=== PATIENT | female | born 1990 | race Caucasian/White ===

== ENCOUNTER 2020-12-03 07:20 | Outpatient (CLI) | payer OTHER, SELFPAY ==
[2020-12-03 07:53] LABS: Basophils Absolute Auto 0.1 K/mm3 (0.0-0.1); Basophils Percent Auto 0.7 % (0.2-1.2); Eosinophils Absolute Auto 0.2 K/mm3 (0-0.3); Eosinophils Percent Auto 1.7 % (0-4.4); Hematocrit 40.1 % (37.0-47.0); Hemoglobin 13.2 g/dL (12.0-15.0); Immature Granulocyte Absolute 0.02 K/mm3 (0.00-0.031); Immature Granulocyte Percent A 0.2 % (0-0.5); Lymphocytes Absolute Auto 4.18 K/mm3 (0.9-3.2); Lymphocytes Percent Auto 45.7 % (18.3-44.2); Mean Corpuscular HGB Conc 32.9 g/dl (32-36); Mean Corpuscular Hemoglobin 29.2 pg (26-34); Mean Corpuscular Volume 88.7 fl (80-100); Mean Platelet Volume 8.9 fl (7.4-10.4); Monocytes Absolute Auto 0.5 K/mm3 (0.1-0.6); Monocytes Percent Auto 5.8 % (2.6-8.5); Neutrophils Absolute Auto 4.2 K/mm3 (1.3-6.7); Neutrophils Percent Auto 45.9 % (45.5-73.1); Platelet Count Result 338 k/mm3 (150-375); Red Blood Count 4.52 M/mm3 (4.2-5.4); White Blood Count 9.2 K/mm3 (4.5-10.0)
[2020-12-03 08:40] LABS: Alanine Aminotransferase 16 U/L (4-35); Albumin Level 4.1 g/dL (3.5-5.1); Alkaline Phosphatase 81 U/L (38-126); Anion Gap 8 mmol/L (8-16); Aspartate Amino Transferase 26 U/L (14-36); Bilirubin,Total 0.4 mg/dL (0.2-1.3); Blood Urea Nitrogen 16 mg/dL (7-17); Calcium 9.4 mg/dL (8.4-10.2); Carbon Dioxide 26 mmol/L (22-30); Chloride 103 mmol/L (98-107); Estimated Glomerular Filt Rate > 60; Glucose 90 mg/dL (65-110); Potassium 3.9 mmol/L (3.4-5.0); Sodium 137 mmol/L (137-145)
[2020-12-03 09:03] LABS: HIV 1/2 Ab P24 Ag Result Negative (Negative)
[2020-12-03 12:50] LABS: Free T4 Free Thyroxine 1.22 ng/mL (0.78-2.19); Vitamin D 25 Hydroxy 21.5 ng/mL
[2020-12-05 13:16] LABS: DHEA-Sulfate 93 mcg/dL (23-266)
[2020-12-06 06:54] LABS: FSH 3.4 mIU/mL (***); Progesterone 6.2 ng/mL (***); Prolactin 16.6 ng/mL (***)
[2020-12-07 05:29] LABS: Insulin Level Total 34.5 uIU/mL (<=19.6); Thyroid Peroxidase Antibodies 36 IU/mL (<9)
[2020-12-07 15:52] LABS: Testosterone Free 5.8 pg/mL (0.1-6.4); Testosterone Total 30 ng/dL (2-45)
[2020-12-07 18:12] LABS: Estradiol, Ultrasensitive 105 pg/mL
== END 2020-12-03 07:21 | disposition home or self-care (01) ==
PROVIDERS: Visit Provider Internal Medicine Endocrinology, Diabetes & Metabolism
DX: N92.6 Irregular menstruation, unspecified (principal); Z11.3 Encounter for screening for infections with a predominantly sexual mode of transmission; R53.83 Other fatigue
CPT/HCPCS: 36415; 80053; 82306; 82607; 82627; 82670; 82746; 83001; 83002; 83525; 84144; 84146; 84402; 84403; 84439; 84443; 85025; 86376; 86703; G0432

== ENCOUNTER 2020-12-06 08:32 | Outpatient (CLI) | payer OTHER, SELFPAY ==
[2020-12-06 09:51] LABS: Cortisol Random 0.83 ug/dL
== END 2020-12-06 08:33 | disposition home or self-care (01) ==
PROVIDERS: Visit Provider Internal Medicine Endocrinology, Diabetes & Metabolism
DX: R63.5 Abnormal weight gain (principal)
CPT/HCPCS: 36415; 82533

== ENCOUNTER 2021-09-30 15:43 | Outpatient (CLI) | payer OTHER, SELFPAY ==
--- NOTE | ~2021-09-30 | XR_ITS ---
XR ankle RT 2V DATE: 09/30/2021 16:04 INDICATION: Injury, pain TECHNIQUE: AP and lateral views COMPARISON: None FINDINGS: Mild plantar calcaneal. No fracture or dislocation of the ankle or disruption of the ankle mortise. No reaction or bone destr uction IMPRESSION: Mild plantar calcaneal enthesopathy Reviewed, dictated and finalized at location A.
== END 2021-09-30 15:44 | disposition home or self-care (01) ==
PROVIDERS: PCP Family Medicine; Visit Provider Nurse Practitioner Family
DX: M25.571 Pain in right ankle and joints of right foot (principal); S99.919A Unspecified injury of unspecified ankle, initial encounter; M77.31 Calcaneal spur, right foot
CPT/HCPCS: 73600

== ENCOUNTER 2022-09-29 11:00 | Emergency (ER) | payer BC, SELFPAY ==
--- NOTE | ~2022-09-29 | XR_ITS ---
EXAMINATION: XR foot RT min 3V DATE: 09/29/2022 11:43 INDICATION: Right foot pain TECHNIQUE: Dorsoplantar, lateral, and 2 oblique views of the right foot were obtained. COMPARISON: None. FINDINGS: Subtle heterotopic ossification is seen lateral to the cuboid. There is mild soft tissue sw elling of the midfoot. The joint spaces are normal. IMPRESSION: 1. Subtle heterotopic ossification lateral to the cuboid which could reflect avulsion injury. Reviewed, dictated and finalized at location A. IMPRESSION: 1. Subtle heterotopic ossification lateral to the cuboid which could reflect av ulsion injury.
[2022-09-29 11:20] VITALS: BP 121/86; PULSE 68; RESP 18; TEMP 36.8; O2SAT 99
--- NOTE | 2022-09-29 12:06 | ED.LOWEXIN ---
HPI - Extremity Injury (Lower) General Chief Complaint: Extremity Injury, Lower Stated Complaint: Rt Ankle and Foot Pain Time Seen by Provider: 09/29/22 11:25 Source: patient Mode of arrival: ambulatory Limitations: no limitations History of Present Illness HPI Narrative: Sandrine is a 31-year-old female patient presenting to clinic today with complaints of right-sided foot pain. She reports that she was skipping approximately 1.5 weeks ago and injured her right foot. She reports that the pain is getting worse that she is walking over the last week. Pain is worse to the dorsal proximal foot and to the lateral foot Related Data Home Medications Medication Instructions Recorded Confirmed buprenorphine 8 mg-naloxone 2 mg 1 film sublingual TID 09/29/22 09/29/22 sublingual film Allergies Allergy/AdvReac Type Severity Reaction Status Date / Time amoxicillin Allergy Mild rash Verified 09/29/22 11:17 ketorolac [From Toradol] Allergy Mild Rash Verified 09/29/22 11:17 tramadol Allergy Mild rash Verified 09/29/22 11:17 codeine Allergy Unknown Confusion Verified 09/29/22 11:17 Review of Systems Review of Systems: Pertinent positives per HPI. Patient denies any fever, chills, rash, headache, visual changes, dizziness, cough, runny nose, sore throat, shortness of breath, chest pain, palpitations, nausea, vomiting, diarrhea, constipation, abdominal pain, or any urinary issues. [facility] Past Medical History Medical History Body mass index (BMI) of 40.1 to 44.9 in adult Depression Surgical History Surgical History History of salpingo-oophorectomy History of tonsillectomy Hx laparoscopic cholecystectomy Family History Family History Father Hypertension Hidradenitis suppurativa Grandparent Diabetes mellitus Hypertension Lung cancer Emphysema lung Alzheimer disease Mother No problems noted. Sibling No problems noted. 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 There is no relevant family history pertinent to the patient complaint. Exam Narrative: General: Well-developed, well nourished, in no apparent distress Head: Normocephalic, atraumatic. Cardio: Regular rate and rhythm, s1 and s2 normal, no murmur appreciated. Resp: Clear to auscultation bilaterally, no rhonchi, rales, wheezing or rubs. Musculoskeletal: No deformity, mild swelling to the right foot when compared to left foot, tender to palpation over the dorsal proximal right foot and lateral foot, pain with plantar flexion and dorsal flexion against resistance over the midfoot and lateral foot, grossly normal range of motion, muscle strength strong and equal, peripheral pulse strong, no cyanosis, limping gait and station Course Course Emergency Course: Portions of this record may have been created with voice recognition software. Level of Care: Express Care Visit Vital Signs Vital signs: Vital Signs Temperature 36.8 C 09/29/22 11:20 Pulse Rate 68 09/29/22 11:20 Respiratory Rate 18
== END 2022-09-29 12:42 | disposition home or self-care (01) ==
PROVIDERS: Emergency Provider Nurse Practitioner Family
DX: S92.901A Unspecified fracture of right foot, initial encounter for closed fracture (principal); X58.XXXA Exposure to other specified factors, initial encounter; Y93.89 Activity, other specified; Z87.891 Personal history of nicotine dependence; F32.A Depression, unspecified
CPT/HCPCS: 29515; 73630; 99214; G0463

== ENCOUNTER 2024-07-31 17:25 | Emergency (ER) | payer OTHER, SELFPAY ==
[2024-07-31 17:35] VITALS: BP 154/98; PULSE 62; RESP 20; TEMP 36.3; O2SAT 100
--- NOTE | 2024-07-31 18:53 | ED_ITS ---
HPI - URI/Sore Throat General Chief Complaint: Upper Respiratory Infection Stated Complaint: Body aches/Congestion Time Seen by Provider: 07/31/24 18:00 Source: patient and RN notes reviewed Mode of arrival: ambulatory Limitations: no limitations History of Present Illness HPI Narrative: 33-year-old female presents Express Care complaining of upper respiratory symptoms for 5-6 days. He says started with sinus congestion, body aches, and a runny nose. She said today she woke up today with worsening symptoms complain of worsening sinus pressure, congestion, nasal discharge, and a nonproductive cough. Patient denies any fevers, chills, sore throat, ear pain, chest pain, shortness of breath. Patient has been under a lot of stress lately has been having a lot of panic attacks. Has a history of anxiety and panic attacks and takes citalopram daily. Related Data Home Medications ?Medication ?Instructions ?Recorded ?Confirmed ?Last Taken ?Type buprenorphine 8 mg-naloxone 2 mg 1 film sublingual TID 09/29/22 10/14/22 Unknown History sublingual film Allergies Allergy/AdvReac Type Severity Reaction Status Date / Time amoxicillin Allergy Mild rash Verified 10/14/22 15:35 ketorolac (From Toradol) Allergy Mild Rash Verified 10/14/22 15:35 tramadol Allergy Mild rash Verified 10/14/22 15:35 codeine Allergy Unknown Confusion Verified 10/14/22 15:35 Opioids - Morphine Analogues AdvReac Severe Recovering Verified 10/14/22 15:35 addict Review of Systems Review of Systems: CONSTITUTIONAL: Denies fever, chills, or sweats. Positive for body aches. EYES: Denies visual changes, redness, or discharge. ENT: Denies sore throat, or otalgia. Positive for congestion and rhinorrhea. CARDIOVASCULAR: Denies chest pain, palpitations, or edema. RESPIRATORY: Positive for cough negative for dyspnea. GASTROINTESTINAL: Denies abdominal pain, nausea, vomiting, or diarrhea. GENITOURINARY: Denies dysuria or hematuria. SKIN: Denies rash or itching. MUSCULOSKELETAL: Denies back pain, joint pain, or myalgia. NEUROLOGIC: Denies headache, numbness, or weakness. PSYCHIATRIC: Positive for anxiety and panic attacks. Negative for depression. All other systems reviewed are negative, except as documented in HPI. PMFSH Past Medical History Medical History Body mass index (BMI) of 40.1 to 44.9 in adult Depression Surgical History Surgical History History of tonsillectomy History of salpingo-oophorectomy Hx laparoscopic cholecystectomy Family History Family History Father Hypertension Hidradenitis suppurativa Grandparent Diabetes mellitus Hypertension Lung cancer Emphysema lung Alzheimer disease Mother No problems noted. Sibling No problems noted. 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 There is no relevant family history pertinent to the patient complaint. Exam Narrative: GENERAL: This is a well-nourished, well-developed adult, in no apparent distress. They are non ill-appearing, nontoxic appearing. Patient is anxious HEAD: normocephalic, atraumatic. EYES: Sclera clear/white. Conjunctiva normal. Vision is grossly intact. Extraocular movements intact EARS: External ears normal, auditory canals clear and without drainage, TMs normal without perforation. Hearing grossly intact. NOSE: External nose normal with nasal discharge present, nasal turbinates erythematous bilaterally with rhinorrhea. Sinus tenderness to palpation to frontal maxillary sinuses. THROAT: Mucous membranes moist, posterior pharynx without erythema or swelling. Postnasal drip present. Uvula midline. NECK: Neck supple, non-tender without lymphadenopathy, masses or thyromegaly. CARDIOVASCULAR: Regular rate and rhythm without murmurs, gallops, or rubs. RESPIRATORY: Clear to auscultation. Breath sounds equal bilaterally. No wheezes, rales, or rhonchi. SKIN: warm, Dry, intact with no suspicious lesions or rash, good texture and turgor. NEURO: awake, alert, and oriented to person, place and time. There were no obvious focal neurologic abnormalities. EXTREMITIES: No joint tenderness, effusion, or edema noted. BACK: Nontender without deformity. No CVA tenderness. Course Course Emergency Course: Portions of this record may have been created with voice recognition software Level of Care: Express Care Visit Vital Signs Vital signs: Vital Signs Temperature 97.3 F L 07/31/24 17:35 Pulse Rate 62 07/31/24 17:35 Respiratory Rate 20 07/31/24 17:35 Blood Pressure 154/98 H 07/31/24 17:35 Pulse Oximetry 100 07/31/24 17:35 Oxygen Delivery Room Air 07/31/24 17:35 Temperature 97.3 F L 07/31/24 17:35 Pulse Rate 62 07/31/24 17:35 Respiratory Rate 20 07/31/24 17:35 Blood Pressure 154/98 H 07/31/24 17:35 Pulse Oximetry 100 07/31/24 17:35 Oxygen Delivery Room Air 07/31/24 17:35 Reviewed MDM - URI/Sore Throat MDM Narrative Medical decision making narrative: Given patient's worsening symptoms. Likely she has developed bacterial sinusitis. Offered patient viral swab testing and she declined. Will treat empirically with doxycycline as she has an allergy to Augmentin. Also prescribe patient hydroxyzine as needed for her panic attacks that she feels like her anxiety is a lot worse lately because her mother has had a stroke. Discussed p hysical exam findings. Advised supportive measures and signs/symptoms to go to the ER. Pt is appropriate for outpt treatment and f/u. Differential Diagnosis Differential diagnosis: Likely upper respiratory infection, sinusitis and viral infection Critical Care Time Critical Care Time Critical Care Time: No Discharge Plan Discharge Clinical Impression: Anxiety Sinusitis Qualifiers: Sinusitis location: unspecified location Chronicity: acute Recurrence: non- recurrent Qualified Code(s): J01.90 - Acute sinusitis, unspecified Patient Disposition: Home Condition: Stable Instructions: Antibiotic Form, Sinusitis (ED) Additional Instructions: Take the antibiotics as directed and complete the course even if you start to feel better. Please wear sunscreen outside while taking doxycycline. Take hydroxyzine as needed for anxiety attacks. Do not drive or operate machinery while taking this medication may make you drowsy. You may use a Neti pot saline rinse 3 times a day with lukewarm distilled water. Continue to take Tylenol or Motrin for pain. Use a humidifier or vaporizer at night. Drink plenty of water. 8-10 glasses per day. Use flonase 2 times per day for 5 days then as needed Take mucinex 2 times per day and be sure to take with 8oz of water. Follow up with Primary provider if not getting better. Please go to the ER if your symptoms worsen, you develop any fevers, breathing problems, worsening panic attacks or any other concerns. Patient Language: Korean Prescriptions: New hydroxyzine HCl 25 mg tablet 25 mg PO TID PRN (Reason: anxiety) Qty: 14 0RF doxycycline monohydrate 100 mg capsule 100 mg PO BID 7 Days Qty: 14 0RF No Action buprenorphine-naloxone 8-2 mg film 1 film sublingual TID citalopram [Celexa] 20 mg tablet 20 mg PO DAILY Qty: 90 3RF Follow-up/Referrals: PHYSICIAN,CHIEF CREATIVE OFFICER [Primary Care Provider] - Stand Alone Forms: Work/School Release IP Time of Disposition: 18:08
== END 2024-07-31 18:12 | disposition home or self-care (01) ==
DX: F41.9 Anxiety disorder, unspecified (principal); J01.90 Acute sinusitis, unspecified; F41.0 Panic disorder [episodic paroxysmal anxiety]; F17.290 Nicotine dependence, other tobacco product, uncomplicated
CPT/HCPCS: 99213; G0463

== ENCOUNTER 2025-02-13 08:21 | Emergency (ER) | payer SELFPAY ==
--- NOTE | ~2025-02-13 | CT_ITS ---
EXAM/PROCEDURE: CT abdomen pelvis wo con HISTORY: R flank RLQ pain COMPARISON: October 20, 2012 TECHNIQUE: Noncontrast CT of abdomen and pelvis FINDINGS: The appendix is not visualized. No grossly inflamed appendix is present. Moderate amount of stool extends to the cecum. Anteflex uterus and adnexal regions appear within normal limits. On image 182 series 3, a 2 mm calcification is present at the expected location of the right UVJ. No hydroureteronephrosis present. No other evidence of urolithiasis seen. Urinary bladder is unopacified and nondistended with no gross acute process. Adrenal glands spleen pancreas stomach and liver appear within normal limits for technique. Gallbladder removed. No AAA. Lung bases clear. Bones intact. IMPRESSION: Directed noncontrast exam with possible punctate right UVJ stone; otherwise, no discrete process identified to explain patient's symptoms. The appendix is not confidently visualized but no grossly inflamed appendix present. Reviewed, dictated and finalized at location A. 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
[2025-02-13 08:23] VITALS: BP 164/105; PULSE 94; RESP 16; TEMP 36.6; O2SAT 95
[2025-02-13 08:57] LABS: BEDSIDEPREGUCG Negative (Negative)
[2025-02-13 09:01] LABS: Hematocrit 39.1 % (37.0-47.0); Hemoglobin 12.9 g/dL (12.0-15.0); Immature Granulocyte Percent A 0.1 % (0-0.5); Lymphocytes Absolute Auto 3.61 K/mm3 (0.9-3.2); Mean Corpuscular HGB Conc 33.0 g/dl (32-36); Mean Corpuscular Hemoglobin 29.4 pg (26-34); Mean Corpuscular Volume 89.1 fl (80-100); Nucleated Red Blood Cells Absolute Auto 0.000 K/mm3 (0.0-0.012); Nucleated Red Blood Cells Perc 0.0 % (0.0-0.2); Platelet Count Result 302 k/mm3 (150-375); Red Blood Count 4.39 M/mm3 (4.2-5.4); White Blood Count 7.7 K/mm3 (4.5-10.0)
[2025-02-13 09:09] LABS: Add Urine Microscopic? YES; Appearance Urine Cloudy (Clear); Glucose Urine UA Trace mg/dL (Negative); Leukocyte Esterase Ur Trace LEU/UL (Negative); Nitrate Urine Negative (Negative); Non Pathogenic Casts 0-2; Specific Grav Ur 1.031 (1.001-1.035)
[2025-02-13 09:26] LABS: Alanine Aminotransferase 29 U/L (6-35); Albumin Level 3.9 g/dL (3.5-5.1); Alkaline Phosphatase 84 U/L (38-126); Anion Gap 6 mmol/L (4-12); Aspartate Amino Transferase 30 U/L (14-36); Bilirubin,Total 0.4 mg/dL (0.2-1.3); Blood Urea Nitrogen 15 mg/dL (7-17); Calcium 8.7 mg/dL (8.4-10.2); Carbon Dioxide 25 mmol/L (22-30); Chloride 106 mmol/L (98-107); Estimated CRCL calculation 113 ml/min; Estimated Glomerular Filt Rate > 60; Glucose 95 mg/dL (65-110); Potassium 3.6 mmol/L (3.4-5.0); Sodium 137 mmol/L (137-145); Total Protein 7.2 g/dL (6.3-8.2)
[2025-02-13] MEDS: SODIUM CHLORIDE 0.9% IV 1,000 ML 999 ML IV CONT (09:40)
[2025-02-13] MEDS: ONDANSETRON INJ 4 MG/2 ML VIAL IV PUSH (09:41)
[2025-02-13] MEDS: HYDROmorphone HCL INJ (*CRX) 1 MG/ML SYR 0.5 MG IV PUSH (09:41)
--- NOTE | 2025-02-13 10:06 | ED_ITS ---
HPI - Abdominal Pain General Chief Complaint: Abdominal Pain Stated Complaint: R flank pain Time Seen by Provider: 02/13/25 09:02 Source: patient Mode of arrival: EMS Limitations: no limitations History of Present Illness HPI narrative: Patient is a 34-year-old female who presents the ED via EMS with report of right-sided flank pain. Patient reports she developed pain throughout her right flank region, radiating to her right lower abdomen this morning after urinating. States pain has been constant and severe since then. Denies history of similar pain. Reports feeling the urge to urinate but states she is only able to pass small amount of urine. Denied hematuria in urine this morning. Reports nausea associated with the pain. Denies vomiting. Denies fevers. Denies history of kidney stones. Related Data Home Medications ?Medication ?Instructions ?Recorded ?Confirmed ?Last Taken ?Type buprenorphine 8 mg-naloxone 2 mg 1 film sublingual TID 09/29/22 10/14/22 Unknown History sublingual film Allergies Allergy/AdvReac Type Severity Reaction Status Date / Time amoxicillin Allergy Mild rash Verified 10/14/22 15:35 ketorolac (From Toradol) Allergy Mild Rash Verified 10/14/22 15:35 tramadol Allergy Mild rash Verified 10/14/22 15:35 Opioids - Morphine Analogues AdvReac Severe Recovering Verified 10/14/22 15:35 addict codeine AdvReac Unknown Confusion Verified 02/13/25 11:24 Review of Systems 2 Review of Systems: All systems reviewed & are unremarkable except as noted in HPI. All systems reviewed & are unremarkable except as noted in HPI and below PMFSH Past Medical History Medical History Body mass index (BMI) of 40.1 to 44.9 in adult Depression Surgical History Surgical History History of tonsillectomy History of salpingo-oophorectomy Hx laparoscopic cholecystectomy Family History Family History Father Hypertension Hidradenitis suppurativa Grandparent Diabetes mellitus Hypertension Lung cancer Emphysema lung Alzheimer disease Mother No problems noted. Sibling No problems noted. 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 HEAD: Normocephalic, atraumatic. RESPIRATORY: Airway patent, respirations nonlabored. Clear to auscultation bilaterally, no rales, rhonchi, wheezing. CARDIOVASCULAR: Regular rate and rhythm without murmurs, rubs, or gallops. ABDOMINAL: Soft, diffuse tenderness throughout right lower/mid abdomen, nondistended. Normoactive BS. Positive CVA tenderness on right MUSCULOSKELETAL: Moves all extremities. No gross deformities. SKIN: Warm, dry, normal color. NEURO: A&O X3. Speech clear. Cranial nerves II-XII grossly intact. Steady gait. No ataxic movements. PSYCHIATRIC: Anxious, tearful. Normal interaction. Course Vital Signs Vital signs: Vital Signs Temperature 97.8 F 02/13/25 08:23 Pulse Rate 94 02/13/25 08:23 Respiratory Rate 16 02/13/25 08:23 Blood Pressure 164/105 H 02/13/25 08:23 Pulse Oximetry 95 02/13/25 08:23 Oxygen Delivery Room Air 02/13/25 08:23 Temperature 97.8 F 02/13/25 08:23 Pulse Rate 81 02/13/25 11:13 Respiratory Rate 16 02/13/25 11:13 Blood Pressure 159/113 H 02/13/25 11:13 Pulse Oximetry 100 02/13/25 11:13 Oxygen Delivery Room Air 02/13/25 08:23 MDM - Abdominal Pain MDM Narrative Medical decision making narrative: Patient presented to ED with sudden onset of right-sided abdominal and flank pain that began this morning after urinating. Pain has been constant since onset. Vital signs are stable. Patient very uncomfortable appearing. Will give pain control. Laboratory studies are grossly unremarkable. Stable kidney function. UA with evidence of blood, 21-50 RBC, many squamous cells, 2+ urine bacteria. No WBC. Sent for culture. Urine negative. CT scan of abdomen/pelvis showing 2 mm punctate right UVJ stone. Consistent with clinical picture. No hydroureteronephrosis. No evidence of acute appendicitis. No leukocytosis or fevers to suggest otherwise. Discussed lab and imaging findings with patient. She has required a few doses of IV pain medication in the ED, but is feeling improved currently. Feels comfortable going home. Discussed discharge home with Eddie Thornton Zofran, strainer. I had a long discussion with patient as she reports history of former narcotic abuse several years ago. She is currently on Suboxone therapy, but is able to go days without taking it. Her mother is at bedside and reports she will handle/control/monitor patient's pain medication at home and only allow for patient to receive the medication as needed. Patient was advised to hold Suboxone therapy while taking [place]. She does appear reliable and committed to her sobriety at this time. She does have a they reason to have pain right now with active kidney stone. She was given strict return precautions. Voiced understanding and is in agreement with plan. Discharged in stable condition. Medical Records Attestation: I reviewed the patient's medical records. Lab Data Attestation: I reviewed the patient's lab results. 02/13/25 08:53 02/13/25 08:53 Labs: Lab Results 02/13/25 02/13/25 Range/Units 08:53 08:55 WBC 7.7 (4.5-10.0) K/mm3 RBC 4.39 (4.2-5.4) M/mm3 Hgb 12.9 (12.0-15.0) g/dL Hct 39.1 (37.0-47.0) % MCV 89.1 (80-100) fl MCH 29.4 (26-34) pg MCHC 33.0 (32-36) g/dl RDW 13.2 (11.5-14.5) % Plt Count 302 (150-375) k/mm3 MPV 9.4 (7.4-10.4) fl Immature Gran % (Auto) 0.1 (0-0.5) % Neut % (Auto) 42.9 L (45.5-73.1) % Lymph % (Auto) 46.9 H (18.3-44.2) % [place] % (Auto) 7.9 (2.6-8.5) % Eos % (Auto) 1.6 (0-4.4) % Baso % (Auto) 0.6 (0.2-1.2) % Lymph # (Auto) 3.61 H (0.9-3.2) K/mm3 [place] # (Auto) 0.6 (0.1-0.6) K/mm3 Eos # (Auto) 0.1 (0-0.3) K/mm3 Baso # (Auto) 0.1 (0.0-0.1) K/mm3 Abs Immat Gran (auto) 0.01 (0.00-0.031) K/mm3 Absolute Neuts (auto) 3.3 (1.3-6.7) K/mm3 Absolute Nucleated RBC 0.000 (0.0-0.012) K/mm3 Nucleated RBC % 0.0 (0.0-0.2) % Sodium 137 (137-145) mmol/L Potassium 3.6 (3.4-5.0) mmol/L Chloride 106 (98-107) mmol/L Carbon Dioxide 25 (22-30) mmol/L Anion Gap 6 (4-12) mmol/L BUN 15 (7-17) mg/dL Creatinine 0.79 (0.7-1.0) mg/dL Estim Creat Clear Calc 113 ml/min Estimated GFR > 60 (59 - ) Glucose 95 (65-110) mg/dL Calcium 8.7 (8.4-10.2) mg/dL Total Bilirubin 0.4 (0.2-1.3) mg/dL AST 30 (14-36) U/L ALT 29 (6-35) U/L Alkaline Phosphatase 84 (38-126) U/L Total Protein 7.2 (6.3-8.2) g/dL Albumin 3.9 (3.5-5.1) g/dL Urine Color Yellow (Yellow) Urine Appearance Cloudy H (Clear) Urine pH 6.0 (5.0-9.0) Ur Specific [place] 1.031 (1.001-1.035) Urine Protein Trace (Negative) mg/dL Urine Glucose (UA) Trace H (Negative) mg/dL Urine Ketones Trace H (Negative) mg/dL Ur Blood (Man) 3+ H (Negative) Urine Nitrate Negative (Negative) Urine Bilirubin Negative (Negative) Urine Urobilinogen 1.0 (<2.0) mg/dL Leukocyte Esterase Rfl Trace H (Negative) MARGY/UL Urine RBC 21-50 H (0-2) /hpf Urine WBC 0-5 (0-3) /hpf Ur Squamous Epith Cells Many H (Few) /hpf Urine Bacteria 2+ H /hpf Urine Casts 0-2 POC Urine HCG, Qual Negative (Negative) Imaging Data Attestation: I personally reviewed and interpreted this imaging study as follows: Radiologist's impression: ITS Impressions Abdomen/Pelvis CT 02/13/25 09:56 IMPRESSION: Directed noncontrast exam with possible punctate right UVJ stone; otherwise, no discrete process identified to explain patient's symptoms. The appendix is not confidently visualized but no grossly inflamed appendix present. Discharge Plan Discharge Clinical Impression: Calculus of distal right ureter Patient Disposition: Home Condition: Stable Instructions: Antibiotic Form, Kidney Stones (ED), How to Strain Your Urine (ED) Additional Instructions: Take Flomax daily as prescribed. Continue Tylenol and Ibuprofen as needed for pain. You can take 1000 mg of Tylenol and 600 mg of ibuprofen every 6 hours. Utilize [place] as needed for more severe/breakthrough pain. Utilize Zofran for nausea. Stay well hydrated. Strain urine to collect stone. Follow up with Urology for further evaluation if needed. Call office to make appointment. Return to the ED if you experience worsening or severe pain, unable to keep down food/drink, fevers, uncontrollable nausea/vomiting, unable to urinate, or any other symptoms of concern. Patient Language: Mongolian Prescriptions: New hydrocodone-acetaminophen 5-325 mg tablet 1 tablet PO Q6H PRN (Reason: pain) Qty: 15 0RF tamsulosin [Flomax] 0.4 mg capsule 0.4 mg PO DAILY Qty: 7 0RF ondansetron 4 mg tablet,disintegrating 4 mg PO Q8H PRN (Reason: nausea and vomiting) Qty: 15 0RF No Action buprenorphine-naloxone 8-2 mg film 1 film sublingual TID hydroxyzine HCl 25 mg tablet 25 mg PO TID PRN (Reason: anxiety) Qty: 14 0RF doxycycline monohydrate 100 mg capsule 100 mg PO BID 7 Days Qty: 14 0RF citalopram [Celexa] 20 mg tablet 20 mg PO DAILY Qty: 90 3RF Follow-up/Referrals: DEE DEE,JUDIE MURCIA [Primary Care Provider] Tom Wharton MD [Physician, Urology] Referral Note: UROLOGY Time of Disposition: 12:30
[2025-02-13 11:13] VITALS: BP 159/113; PULSE 81; RESP 16; O2SAT 100
[2025-02-13] MEDS: TAMSULOSIN HCL 0.4 MG CAPSULE PO (11:13)
[2025-02-13] MEDS: HYDROmorphone HCL INJ (*CRX) 1 MG/ML SYR IV PUSH (11:48)
[2025-02-13] MEDS: IBUPROFEN IV 800 MG/200 ML 800 MG/200 ML BAG 400 MG IVPB (12:30)
== END 2025-02-13 13:04 | disposition home or self-care (01) ==
PROVIDERS: Emergency Medicine; Emergency Provider Physician Assistant; PCP Nurse Practitioner Family
DX: N20.1 Calculus of ureter (principal); F32.A Depression, unspecified; E66.9 Obesity, unspecified; Z68.38 Body mass index [BMI] 38.0-38.9, adult
CPT/HCPCS: 36415; 74176; 80053; 81001; 81025; 85025; 87086; 96361; 96365; 96375; 96376; 99284; A9270; J1171; J1741; J2405; J7030